=== PATIENT | male | born 1970 | race Caucasian/White ===

== ENCOUNTER 2017-06-18 06:16 | Observation (INO) | payer BC ==
--- NOTE | 2017-06-18 06:39 | ER Document Report ---
ED General - General Chief Complaint: Chest Pain > 30 Stated Complaint: CHEST PAIN Time Seen by Provider: 06/18/17 06:38 Notes: 46-year-old male with no known past medical history although he has not seen a doctor in 3 years presents with an episode of chest pressure tingling in his left greater than right hand dizziness and near syncope while driving. This occurred for about 10 minutes and recurred for about 20 more minutes and is let up but is still present. He has no palpitations or skipped beats. He did not syncopized. He has no history of the same. He has a strong family history of cardiac disease but does not smoke and has never been diagnosed with hypertension hyperlipidemia or diabetes. TRAVEL OUTSIDE OF THE [place] IN LAST 30 DAYS: No - Related Data Allergies/Adverse Reactions: Penicillins Allergy (Intermediate, Verified 06/18/17 06:40) Hives strawberry Allergy (Verified 06/18/17 06:40) Past Medical History - Social History Smoking Status: Never Smoker Family History: None, CAD Review of Systems - Review of Systems Notes: REVIEW OF SYSTEMS GEN: Denies fever, chills, weight loss ENT: Denies sore throat, nasal discharge, ear pain EYES: Denies blurry vision, eye pain, discharge CV: Denies chest pain, palpitations, edema RESP: Denies cough, shortness of breath, wheezing GI: Denies abdominal pain, nausea, vomiting, diarrhea MSK: Denies joint pain/swelling, edema, SKIN: Denies rash, skin lesions LYMPH: Denies swollen glands/lymph nodes NEURO: And tingling bilaterally. Chest pressure denies headache, focal weakness or numbness, dizziness PSYCH: Denies depression, suicidal or homicidal ideation PHYSICAL EXAMINATION General: No acute distress, well-nourished Head: Atraumatic, normocephalic ENT: Mouth normal, oropharynx moist, no exudates or tonsillar enlargement Eyes: Conjunctiva normal, pupils equal, lids normal Neck: No JVD, supple, no guarding CVS: Normal rate, regular rhythm, no murmurs Resp: No resp distress, equal and normal breath sounds bilaterally GI: Nondistended, soft, no tenderness to palpation, no rebound or guarding Ext: No deformities, no edema, normal range of motion in upper and lower ext. Hands are cold with delayed cap refill bilaterally. Back: No CVA or midline TTP Skin: No rash, warm Lymphatic: No lymphadeopathy noted Neuro: Awake, alert. Face symmetric. GCS 15. Physical Exam - Vital signs Vitals: Temp Pulse Resp BP Pulse Ox 98.1 F 82 20 161/88 H 99 06/18/17 06:19 06/18/17 06:19 06/18/17 06:19 06/18/17 06:19 06/18/17 06:19 Course - Re-evaluation Re-evalutation: 06/18/17 06:56 38-year-old male presents with typicalsounding chest pressure concerning for ACS versus arrhythmia. He has no known risk factors other than family history although he does not receive right regular medical care. In the ED he has slight hypertension so I will assume he is in general a hypertensive person. That makes to risk factors. His ECG does not show acute ischemia but has a nonspecific intraventricular conduction delay. He will receive aspirin pending his troponin labs. 06/18/17 07:42 Lab results only significant for elevated hemoglobin. Troponin negative. Patient still feeling slightly strange. His heart score is 4. Spoke with hospitalist admit to [facility] telemetry. Spoke with Dr. Rogers. - Vital Signs Vital signs: Temp Pulse Resp BP Pulse Ox 98.1 F 82 19 143/91 H 98 06/18/17 06:19 06/18/17 06:19 06/18/17 07:01 06/18/17 07:01 06/18/17 07:01 - Laboratory Result Diagrams: 06/18/17 06:45 06/18/17 06:45 Laboratory results interpreted by me: 06/18/17 06:45 Hgb 17.1 H - Diagnostic Test Radiology reviewed: Image reviewed, Reports reviewed - EKG Interpretation by Ca EKG shows normal: Sinus rhythm Rate: Normal Rhythm: NSR [place]/QRS: IVCD When compared to previous EKG there are: Previous EKG unavailable Discharge - Discharge Clinical Impression: Chest pain Qualifiers: Chest pain type: unspecified Qualified Code(s): R07.9 - Chest pain, unspecified Condition: Good Disposition: ADMITTED OBSERVATION Admitting Provider: Hospitalist Unit Admitted: [facility] Referrals: AURY BOSWELL MD [Primary Care Provider] - Follow up as needed
[2017-06-18] MEDS ORDERED: ASPIRIN 325 MG TABLET PO ONE (06:54)
[2017-06-18 06:58] LABS: ABSOLUTE BASOPHILS # (AUTO) 0.1 10^3/uL (0.0-0.2); ABSOLUTE EOSINOPHILS # (AUTO) 0.2 10^3/uL (0.0-0.6); ABSOLUTE LYMPHOCYTES (AUTO) 2.3 10^3/uL (0.5-4.7); ABSOLUTE MONOCYTES (AUTO) 0.5 10^3/uL (0.1-1.4); ABSOLUTE NEUT (AUTO) 5.1 10^3/uL (1.7-8.2); BASOPHILS % (AUTO) 0.9 % (0-2); EOSINOPHILS % (AUTO) 2.3 % (0-6); HEMATOCRIT 49.4 % (37.9-51.0); HEMOGLOBIN 17.1 g/dL (13.5-17.0); MEAN CORPUSCULAR HEMOGLOBIN 31.6 pg (27.0-33.4); MEAN CORPUSCULAR HGB CONC 34.7 g/dL (32.0-36.0); MEAN CORPUSCULAR VOLUME 91 fl (80-97); MONOCYTES % (AUTO) 6.2 % (3-13); PLATELET COUNT 294 10^3/uL (150-450); RED BLOOD COUNT 5.43 10^6/uL (4.35-5.55); RED CELL DISTRIBUTION WIDTH 13.4 % (11.5-14.0); SEGMENTED NEUTROPHILS % (AUTO) 62.6 % (42-78); TOTAL CELLS COUNTED % (AUTO) 100 %; WHITE BLOOD COUNT 8.1 10^3/uL (4.0-10.5)
--- NOTE | 2017-06-18 07:13 | RADIOLOGY REPORT (SQ) ---
EXAM DESCRIPTION: CHEST SINGLE VIEW CLINICAL HISTORY: 46 years, Male, dizziness COMPARISON: None. NUMBER OF VIEWS: 1 TECHNIQUE: AP portable upright LIMITATIONS: None. FINDINGS: Moderate lung volume, clear parenchyma, normal cardiac silhouette, and minimal scoliotic curvature. IMPRESSION: No acute cardiopulmonary findings.
[2017-06-18 07:15] LABS: ANION GAP 11 (5-19); BLOOD UREA NITROGEN 13 mg/dL (7-20); CALCIUM 9.9 mg/dL (8.4-10.2); CARBON DIOXIDE 27 mmol/L (22-30); CHLORIDE 106 mmol/L (98-107); GLUCOSE 110 mg/dL (75-110); POTASSIUM 3.9 mmol/L (3.6-5.0)
--- NOTE | 2017-06-18 07:49 | EKG REPORT ---
SEVERITY:- ABNORMAL ECG - SINUS RHYTHM NONSPECIFIC IVCD WITH LAD : Confirmed by: Dharmesh Young MD 18-Jun-2017 07:47:47
[2017-06-18] MEDS ORDERED: ACETAMINOPHEN 325 MG TABLET PO PRN (08:23)
[2017-06-18] MEDS ORDERED: NITROGLYCERIN 0.4 MG/TAB 25 TAB/BOTTLE SL PRN (08:40)
[2017-06-18] MEDS ORDERED: HYDRALAZINE HCL INJ/PF 20 MG/1 ML SDV IV PRN (08:40)
--- NOTE | 2017-06-18 08:40 | PDOC H&P ---
History of Present Illness Admission Date/PCP: 06/18/17 07:59 AURY BOSWELL MD Patient complains of: Tunnel vision associated with chest pain and paresthesias of both hands. History of Present Illness: CHRISTIAN LUTZ is a 46 year old male. The patient got up this morning. He felt fine. He took a shower and got ready for work. He lives in [place] and works in [place]. While driving to [place] he developed sudden onset of tunnel vision followed by substernal chest pressure to the left chest. He then became flushed and felt like he was going to pass out. He felt this overwhelming sensation. He then developed pain radiating down to the left arm. He then noted tingling in his hands and his hands then became cold. He pulled over. His symptoms subsided and then recurred. Symptoms are lasting less than 5 minutes. He did not feel the sensation of the room spinning. He was not nauseated. He did not vomit. He was not sweating. He states that he was not hyperventilating. However, he did state that his symptoms could be similar to a panic attack but he did not feel anxious. He has never had these symptoms before. He has not had any recent illnesses, but, he has had the sniffles earlier this week. Past Medical History Medical History: None Past Surgical History Past Surgical History: Reports: Herniorrhaphy, Orthopedic Surgery Social History Smoking Status: Never Smoker - Advance Directive Resuscitation Status: Full Code Surrogate healthcare decision maker:: The patient requests that his Maite Lutz be his surrogate decision maker. She can be reached at [phone]. Family History Family History: None, CAD Parental Family History Reviewed: Yes Children Family History Reviewed: Yes Sibling(s) Family History Reviewed.: Yes - The patient has no siblings. His mother is alive and well at age 73 and his father is alive and well at age 75. He has multiple uncles and one on that has a history of coronary disease but no primary relatives with coronary artery disease. Medication/Allergy Allergies/Adverse Reactions: Penicillins Allergy (Intermediate, Verified 06/18/17 06:40) Hives strawberry Allergy (Verified 06/18/17 06:40) Review of Systems Constitutional: ABSENT: chills, fever(s), headache(s), weight gain, weight loss Eyes: PRESENT: as per HPI Ears: ABSENT: hearing changes Nose, Mouth, and Throat: ABSENT: as per HPI, headache(s), mouth pain, sore throat, vertigo, other Breasts: ABSENT: as per HPI, other Cardiovascular: PRESENT: as per HPI Respiratory: ABSENT: cough, hemoptysis Gastrointestinal: ABSENT: abdominal pain, constipation, diarrhea, hematemesis, hematochezia, nausea, vomiting Genitourinary: ABSENT: dysuria, hematuria Musculoskeletal: ABSENT: joint swelling Integumentary: ABSENT: rash, wounds Neurological: ABSENT: abnormal gait, abnormal speech, confusion, dizziness, focal weakness, syncope Psychiatric: ABSENT: anxiety, depression, homidical ideation, suicidal ideation Endocrine: ABSENT: cold intolerance, heat intolerance, polydipsia, polyuria Hematologic/Lymphatic: ABSENT: easy bleeding, easy bruising Physical Exam Vital Signs: Temp Pulse Resp BP Pulse Ox 98.4 F 82 25 H 145/88 H 94 06/18/17 08:01 06/18/17 06:19 06/18/17 08:01 06/18/17 08:01 06/18/17 08:01 Additional comments: The patient is a very healthy appearing middle-aged white male. His cognition and mentation are normal. Neurologically, he moves all 4 extremities and can follow commands. Strength is equal and symmetrical. Sensation is normal. Patient's facial appearance is normal. Cranial nerves II through XII are intact. The patient's neck is supple. He does not have JVD. Trachea is midline. Lungs are clear to auscultation bilaterally. His cardiac exam demonstrates a regular rate and rhythm without murmurs, gallops or rubs. The abdomen is soft and flat. Bowel sounds are present in the lower quadrants. There is no guarding or rebound and there are no hernias or masses present. The lower extremities are warm to touch without edema. The skin is warm dry and intact without lesions or rashes. Results Impressions: Chest X-Ray 06/18/17 06:38 IMPRESSION: No acute cardiopulmonary findings. Assessment & Plan - Diagnosis (1) Pre-syncope Is this a current diagnosis for this admission?: Yes (2) Hypertension Is this a current diagnosis for this admission?: Yes (3) Polycythemia Is this a current diagnosis for this admission?: Yes (4) Chest pain Qualifiers: Chest pain type: unspecified Qualified Code(s): R07.9 - Chest pain, unspecified Is this a current diagnosis for this admission?: Yes - Time Time Spent: 30 to 50 Minutes - Inpatient Certification Medical Necessity: Need For Continuous Telemetry Monitoring, Risk of Complication if Not Cared For in Hospital - Plan Summary Plan Summary: The patient will be admitted to observation status. He presents with chest pain and presyncope. The differential diagnosis for the patient's symptoms include ischemic heart disease. An acute cerebrovascular event is unlikely. Vestibular dysfunction is also on the differential diagnosis. The patient's symptoms could also be secondary to uncontrolled hypertension. Orthostatic vital signs will be done to evaluate the patient for orthostasis due to dehydration. The patient's polycythemia could indicate dehydration. He is mild hypertension will be treated with hydralazine at this point. I will order an echocardiogram. The patient will be on continuous telemetry monitoring. A stress test will be ordered if the patient rules out with cardiac enzymes.
[2017-06-18] MEDS ORDERED: INSULIN LISPRO 100 UNIT/ML 3 ML VIAL SUBCUT PRN (08:41)
[2017-06-18] MEDS ORDERED: DEXTROSE 50%-WATER 25 GM/50 ML DISP.SYRIN IV PRN ×2 (08:41)
[2017-06-18] MEDS ORDERED: DEXTROSE 40% GEL 15 GM TUBE PO PRN ×2 (08:41)
[2017-06-18] MEDS ORDERED: GLUCAGON,HUMAN RECOMB 1 MG INJ IM PRN (08:41)
[2017-06-18] MEDS: FAMOTIDINE 20 MG TABLET PO SCH ×2 (10:14→21:31)
[2017-06-18] MEDS: 1/2 NORMAL SALINE 1,000 ML IV PRN ×2 (10:15→23:53)
--- NOTE | 2017-06-18 19:09 | XCELERA REPORT ---
[address] [address] Transthoracic Echocardiogram Report Name: CHRISTIAN LUTZ Age: 46 yrs Gender: Male : 1970 Patient Status: Inpatient Patient Location: [address] [place] [address] Study Date: 06/18/2017 10:12 AM Height: 68 in Weight: 205 lb BSA: 2.1 m2 Procedure: A complete two-dimensional transthoracic echocardiogram was performed (2D, M-mode, spectral and color flow Doppler). The study was technically difficult with many images being suboptimal in quality. Reason For Study: Syncope Ordering Physician: HARMEET GARCIA Performed By: Genny Campbell Interpretation Summary The left ventricular ejection fraction is normal. There is borderline concentric left ventricular hypertrophy. The left ventricle is grossly normal size. Doppler measurements suggest impaired left ventricular relaxation, which is associated with grade I/IV or mild diastolic dysfunction Wall motion cannot be accurately commented on, but no definite regional wall motion abnormalities noted. The right ventricular systolic function is normal. The left atrium is mildly dilated. The right atrium is mildly dilated. There is a trace amount of mitral regurgitation There is no mitral valve stenosis. No aortic regurgitation is present. There is no aortic valve stenosis There is a trace or physiologic amount of tricuspid regurgitation Tricuspid regurgitation jet envelope not well defined to measure RV systolic pressure accurately. The aortic root is not well visualized but is probably normal size. The inferior vena cava appeared normal and decreased > 50% with respiration (RAP 5-10 mmHg) There is no pericardial effusion. MMode/2D Measurements & Calculations RVDd: 3.0 cm LVIDd: 4.8 cm FS: 39.0 % Ao root diam: 3.6 cm IVSd: 0.93 cm LVIDs: 2.9 cm EDV(Teich): 108.4 ml LVPWd: 0.94 cm ESV(Teich): 33.2 ml Ao root area: 10.4 cm2 EF(Teich): 69.4 % LA dimension: 3.7 cm LVOT diam: 2.5 cm LVOT area: 5.0 cm2 Doppler Measurements & Calculations MV E max nayely: MV P1/2t max nayely: Ao V2 max: LV V1 max P.4 cm/sec 64.4 cm/sec 134.2 cm/sec 4.8 mmHg MV A max nayely: MV P1/2t: 68.7 msec Ao max PG: LV V1 max: 45.2 cm/sec MVA(P1/2t): 3.2 cm2 7.2 mmHg 109.7 cm/sec MV E/A: 1.4 MV dec slope: CHANDRA(V,D): 4.1 cm2 274.6 cm/sec2 PA V2 max: TR max nayely: 83.9 cm/sec 209.6 cm/sec PA max PG: TR max P.6 mmHg 2.8 mmHg Left Ventricle The left ventricle is grossly normal size. There is borderline concentric left ventricular hypertrophy. The left ventricular ejection fraction is normal. Doppler measurements suggest impaired left ventricular relaxation, which is associated with grade I/IV or mild diastolic dysfunction. Wall motion cannot be accurately commented on, but no definite regional wall motion abnormalities noted. Right Ventricle The right ventricle is mildly dilated. There is normal right ventricular wall thickness. The right ventricular systolic function is normal. Atria The right atrium is mildly dilated. The left atrium is mildly dilated. Interarterial septum not well visualized and not well dopplered. Cannot comment on ASD/PFO presence. Mitral Valve The mitral valve is grossly normal. There is no mitral valve stenosis. There is a trace amount of mitral regurgitation. Aortic Valve The aortic valve is grossly normal. There is no aortic valve stenosis. No aortic regurgitation is present. Tricuspid Valve The tricuspid valve is not well visualized, but is grossly normal. There is no tricuspid stenosis. There is a trace or physiologic amount of tricuspid regurgitation. Tricuspid regurgitation jet envelope not well defined to measure RV systolic pressure accurately. Pulmonic Valve The pulmonic valve is not well visualized. Great Vessels The aortic root is not well visualized but is probably normal size. The inferior vena cava appeared normal and decreased > 50% with respiration (RAP 5-10 mmHg). Effusions There is no pericardial effusion. : HARMEET GARCIA > Augustine Hernández
[2017-06-19] MEDS: FAMOTIDINE 20 MG TABLET PO SCH (10:25)
--- NOTE | 2017-06-19 11:34 | Progress Note ---
Provider Note Provider Note: EXERCISE TREADMILL TEST. DATE OF PROCEDURE: June 18, 2017, INDICATION: Patient with unspecified chest pain. Coronary risk factors: Hypertension. Resting EKG: Sinus rhythm, no baseline ST segment changes. Stress EKG: No significant changes noted with with exercise treadmill. Reason for termination: Dyspnea and fatigue. PROCEDURE REPORT: Baseline heart rate: 67 beats per minute with blood pressure of 112/78. Patient had no significant complaints at baseline. Patient was exercised on a standard Rocky protocol. Patient exercised for total of 9 minutes and 20 seconds. Exercise was stopped because of fatigue and shortness of breath. Patient denied any chest arm or neck discomfort during the exercise, at peak exercise or in recovery. If automatic blood pressure recorded and if felt not accurate manual blood pressure then were recorded at appropriate intervals. Peak heart rate: 151 bpm, 87% of predicted maximum. Peak blood pressure: 175/81 mmHg. Double product: Adequate kcal Exercise EKG: Showed some baseline artifact during exercise but no significant ST segment changes noted. Please note that at peak exercise, the EKG leads became loose however they were reconnected immediately and no significant ST segment changes were noted. CONCLUSIONS: Normal EKG and hemodynamic response to exercise. Good exercise tolerance. Negative EKG changes with exercise. RECOMMENDATIONS: Aggressive risk factor modification, medical therapy. Consider cardiology consultation if clinically indicated. Augustine Hernández M.D., [facility] HOSPITALJojo Crm [employer] Developer surgeon/president, Board certified in cardiovascular diseases, Nuclear cardiology, Echocardiography Cardiac CT and cardiac MRI Ph. [phone] Ph. [phone]
--- NOTE | 2017-06-19 13:21 | DRAGON STRESS TEST REPORT ---
EXERCISE TREADMILL TEST. DATE OF PROCEDURE: June 19, 2017, INDICATION: Patient with unspecified chest pain. Coronary risk factors: Hypertension. Resting EKG: Sinus rhythm, no baseline ST segment changes. Stress EKG: No significant changes noted with with exercise treadmill. Reason for termination: Dyspnea and fatigue. PROCEDURE REPORT: Baseline heart rate: 67 beats per minute with blood pressure of 112/78. Patient had no significant complaints at baseline. Patient was exercised on a standard Rocky protocol. Patient exercised for total of 9 minutes and 20 seconds. Exercise was stopped because of fatigue and shortness of breath. Patient denied any chest arm or neck discomfort during the exercise, at peak exercise or in recovery. If automatic blood pressure recorded and if felt not accurate manual blood pressure then were recorded at appropriate intervals. Peak heart rate: 151 bpm, 87% of predicted maximum. Peak blood pressure: 175/81 mmHg. Double product: Adequate kcal Exercise EKG: Showed some baseline artifact during exercise but no significant ST segment changes noted. Please note that at peak exercise, the EKG leads became loose however they were reconnected immediately and no significant ST segment changes were noted. CONCLUSIONS: Normal EKG and hemodynamic response to exercise. Good exercise tolerance. Negative EKG changes with exercise. RECOMMENDATIONS: Aggressive risk factor modification, medical therapy. Consider cardiology consultation if clinically indicated. Augustine Hernández M.D., [employer] Attendant physical fitness trainer, Board certified in cardiovascular diseases, Nuclear cardiology, Echocardiography Cardiac CT and cardiac MRI Ph. [phone] [facility]
[2017-06-19] MEDS ORDERED: ENOXAPARIN SODIUM INJ 100 MG/1 ML DISP.SYRIN SUBCUT ONE (14:45)
--- NOTE | 2017-06-19 15:07 | RADIOLOGY REPORT (SQ) ---
EXAM DESCRIPTION: CTA CHEST COMPLETED DATE/TIME: 06/19/2017 2:42 pm REASON FOR STUDY: Rule out pe COMPARISON: None. TECHNIQUE: CT scan of the chest performed using helical scanning technique with dynamic intravenous contrast injection. Images reviewed with lung, soft tissue and bone windows. Reconstructed coronal and sagittal MPR images reviewed. Additional 3 dimensional post-processing performed to develop Maximal Intensity Projection images (AR P). All images stored on PACS. All CT scanners at this facility use dose modulation, iterative reconstruction, and/or weight based d osing when appropriate to reduce radiation dose to as low as reasonably achievable (ALARA). [facility]: Dose Right [facility]: CareDose [facility]: Dose Right [facility]: Teradose 4D [facility]: Breakout [employer] CONTRAST TYPE AND DOSE: contrast/concentration: Isovue 370.00 mg/ml; Total Contrast Delivered: 74.0 ml; Total Saline Delivered: 110.0 ml Contrast bolus optimized for the pulmonary arteries. Not diagnostic for the aorta. RENAL FUNCTION: BUN 13 creatinine 0.9 RADIATION DOSE: CT Rad equipment meets quality standard of care and radiation dose reduction techniq ues were employed. CTDIvol: 11.3 - 15.4 mGy. DLP: 527 mGy-cm. . LIMITATIONS: None. FINDINGS: LUNGS AND PLEURA: Subsegmental atelectasis left lower lobe. No pleural effusions, calcifi cations. AORTA AND GREAT VESSELS: No aneurysm. Contrast bolus not optimized for the aorta. HEART: No pericardial effusion. No significant coronary artery calcifications. PULMONARY ARTERIES: No emboli visualized in the main pulmonary arteries or the segmental branches. HILAR AND MEDIASTINAL STRUCTURES: No identified masses or abnormal nodes. HARDWARE: None in the chest. UPPER ABDOMEN: No significant findings. Limited exam. THYROID AND OTHER SOFT TISSUES: No masses. No adenopathy. BONES: No acute or significant finding. 3D MIPS: Confirm above findings. OTHER: No other significant finding. IMPRESSION: No evidence of pulmonary embolus. COMMENT: Quality ID # [id number]: Final reports with documentation of one or more dose reduction techniques (e.g., Automated exposure control, adjustment of the mA and/or kV according to patient size, use of iterative reconstruction technique) TECHNICAL DOCUMENTATION: JOB ID: [id number] [employer]- All Rights Reserved
--- NOTE | 2017-06-19 15:46 | PDOC DISCHARGE SUMMARY ---
General - Admit/Disc Date/PCP Admission Date/Primary Care Provider: 06/18/17 07:59 AURY BOSWELL MD Discharge Date: 06/19/17 - Discharge Diagnosis (1) Pre-syncope Is this a current diagnosis for this admission?: Yes (2) Hypertension Is this a current diagnosis for this admission?: Yes (3) Polycythemia Is this a current diagnosis for this admission?: Yes (4) Chest pain Is this a current diagnosis for this admission?: Yes - Additional Information Resuscitation Status: Full Code Discharge Diet: Regular Discharge Activity: Activity As Tolerated Home Medications: No Home Medications 06/18/17 History of Present Illness History of Present Illness: CHRISTIAN LUTZ is a 46 year old male. The patient got up this morning. He felt fine. He took a shower and got ready for work. He lives in [place] and works in [place]. While driving to [place] he developed sudden onset of tunnel vision followed by substernal chest pressure to the left chest. He then became flushed and felt like he was going to pass out. He felt this overwhelming sensation. He then developed pain radiating down to the left arm. He then noted tingling in his hands and his hands then became cold. He pulled over. His symptoms subsided and then recurred. Symptoms are lasting less than 5 minutes. He did not feel the sensation of the room spinning. He was not nauseated. He did not vomit. He was not sweating. He states that he was not hyperventilating. However, he did state that his symptoms could be similar to a panic attack but he did not feel anxious. He has never had these symptoms before. He has not had any recent illnesses, but, he has had the sniffles earlier this week. Hospital Course Hospital Course: The patient was admitted to the hospital with atypical chest pain and near syncope. He ruled out for myocardial infarction by cardiac enzymes. Overnight , he did have persistent symptoms of chest pain, but they were very mild. He presented with some mild hypertension but is normotensive today. His hypertension on arrival was likely secondary to stress. The patient may also have a component of dehydration as his hemoglobin was noted to be slightly elevated. Patient had a normal ambulatory stress test. He had an echocardiogram. The echocardiogram demonstrated a borderline enlarged right ventricle. Therefore, the patient had a CT a of the chest to rule out pulmonary embolus. He was ruled out for pulmonary embolus. His symptoms are somewhat unusual. The differential diagnosis includes musculoskeletal pain, pain due to a gastrointestinal cause. Cardiac ischemia is very unlikely based on his workup. As the patient's blood pressure is normal today I am not sending him home on any antihypertensives. The differential for his syncope could also include neurogenic syncope. His symptoms may also be secondary to acute labyrinthitis. He was told to return to the emergency department for any recurrent symptoms. Physical Exam Vital Signs: Temp Pulse Resp BP Pulse Ox 98.1 F 68 16 118/69 99 06/19/17 04:01 06/19/17 14:00 06/19/17 07:57 06/19/17 07:57 06/19/17 07:57 Intake & Output 06/18/17 06/19/17 06/20/17 06:59 06:59 06:59 Intake Total 2359 Balance 2359 Weight 99.7 kg Additional comments: The patient is an extremely healthy appearing 46-year-old male. He does not appear to be in any distress. His facial appearance is unremarkable. His neurological exam is completely normal. His lungs are clear to auscultation bilaterally. His cardiac exam is regular without murmurs, gallops or rubs. The abdomen is soft, flat and benign. Remedies are warm to touch without edema. The skin is warm, dry and intact. Results Laboratory Results: 06/18/17 06/18/17 06/19/17 13:29 18:56 01:07 Troponin I < 0.012 < 0.012 < 0.012 Impressions: Chest X-Ray 06/18/17 06:38 IMPRESSION: No acute cardiopulmonary findings. Chest/Abdomen CTA 06/19/17 00:00 IMPRESSION: No evidence of pulmonary embolus. Plan Discharge Plan: Return to the emergency department for recurrent symptoms; follow-up with your primary care doctor in 1-2 weeks. Time Spent: Less than 30 Minutes
[2017-06-19 15:50] LABS: APPEARANCE,URINE CLEAR; BILIRUBIN,URINE NEGATIVE (NEGATIVE); COLOR,URINE STRAW; GLUCOSE, URINE NEGATIVE (NEGATIVE); KETONES,URINE NEGATIVE (NEGATIVE); LEUKOCYTE ESTERASE,URINE NEGATIVE (NEGATIVE); NITRITE,URINE NEGATIVE (NEGATIVE); PROTEIN,URINE NEGATIVE (NEGATIVE); URINE SPECIFIC GRAVITY 1.048; UROBILINOGEN,URINE NEGATIVE mg/dL (<2.0)
[2017-06-19 16:44] VITALS: BP 130/91
[2017-06-19] MEDS ORDERED: ENOXAPARIN SODIUM INJ 100 MG/1 ML DISP.SYRIN SUBCUT SCH (22:00)
--- NOTE | 2017-06-20 15:33 | Physician Advisory Note ---
Physician Advisor ProgressNote .: Pursuant to the plan for Jennifer Miller, I have reviewed the medical record for this patient. Physician Advisor Statement: Discharge summary explains clinical thinking nicely, including differential dx for CP, but we need to specify a "MOST LIKELY" causing dx for each symptom dx: 1. ""pre-syncope, suspect due to " (neurocardiogenic, or ....?) 2. "CP, most likely due to " (musculoskeltal? gastritis? esophagitis ? ....) Thanks! CK
== END 2017-06-19 17:02 | disposition home or self-care (01) ==
LOC: ER 06:16 → EH 07:59 → 3W 08:53
PROVIDERS: ADMIT Internal Medicine Pulmonary Disease; ATTEND Internal Medicine Pulmonary Disease
DX: R07.89 Other chest pain (principal); R55 Syncope and collapse; I10 Essential (primary) hypertension; D75.1 Secondary polycythemia; R20.2 Paresthesia of skin; H53.489 Generalized contraction of visual field, unspecified eye; R23.2 Flushing; R53.83 Other fatigue; R06.02 Shortness of breath; D58.2 Other hemoglobinopathies; Z82.49 Family history of ischemic heart disease and other diseases of the circulatory system
CPT/HCPCS: 93005; 99285; 36415; 82962 ×2; 85025; 80048; 81001; 84484 ×2; 93306; 93017; 71045; 71275; 93010; G0378 ×3; J1650